=== PATIENT | male | born 1995 | race Two or more races ===

== ENCOUNTER 2020-09-12 07:14 | Emergency (ER) | payer MEDICAID ==
[~2020-09-12] VITALS: Ht 177.8 cm; Wt 61.2 kg
[2020-09-12 07:25] VITALS: Ht 177.8 cm; Wt 61.2 kg
[2020-09-12 08:18] LABS: BASOPHIL % 0.5 % (0.2-1.5); PLATELET COUNT 254 x10^3mcL (152-348); RED CELL DISTRIBUTION WIDTH 12.5 % (12.1-16.2)
[2020-09-12] MEDS ORDERED: AUGMENTIN 875-1 EACH PO (08:58)
[2020-09-12] MEDS ORDERED: MOT600 PO (08:58)
[2020-09-12] MEDS ORDERED: NOR10T PO (08:58)
[2020-09-12 13:30] VITALS: BP 106/91
[2020-09-12 14:55] LABS: AMPHETAMINE QUAL UR POSITIVE (See below)
== END 2020-09-12 14:06 | disposition home or self-care (01) ==
LOC: ED 07:14
PROVIDERS: Emergency Medicine
DX: S02.2XXA Fracture of nasal bones, initial encounter for closed fracture (principal); H05.221 Edema of right orbit; V49.9XXA Car occupant (driver) (passenger) injured in unspecified traffic accident, initial encounter; Y93.I9 Activity, other involving external motion; Y92.413 State road as the place of occurrence of the external cause; Y99.8 Other external cause status
CPT/HCPCS: 82962; G0480; J2270; J2405